=== PATIENT | female | born 1950 | race Caucasian/White ===

== ENCOUNTER → 2017-11-19 | Outpatient (CLI) | payer BC, MEDICARE | END | disposition home or self-care (01) | LOC: PCVCCLINIC 11:48 | DX: I10 Essential (primary) hypertension (principal); R09.89 Other specified symptoms and signs involving the circulatory and respiratory systems; E03.9 Hypothyroidism, unspecified; E78.00 Pure hypercholesterolemia, unspecified; R94.31 Abnormal electrocardiogram [ECG] [EKG]; Z82.49 Family history of ischemic heart disease and other diseases of the circulatory system | CPT/HCPCS: 80061; 93005; G0463 ==

== ENCOUNTER → 2018-03-01 | Outpatient (CLI) | payer BC, MEDICARE ==
--- NOTE | 2018-03-01 12:58 | PCVCIMAG ---
APPROVED REPORT Study performed: 03/01/2018 11:18:19 Exam: Comprehensive 2D, Doppler, and color-flow Echocardiogram Indication: Hyperlipidemia Patient Location: Echo lab Status: routine Ht: 5 ft 2 in HR: 84 bpm BP: 130/100 mmHg Rhythm: NSR Medical History Medical History: HTN, Hyperlipidemia Cardiac Risk Factors: HTN, Hyperlipidemia Procedure The patient underwent an Exercise Stress Test using the Zi Protocol. Blood pressure, heart rate, and EKG were monitored. An Echocardiogram was performed by it field technician in four stages in quad fashion. At peak stress, four selected images were obtained and placed side by side with resting images for comparison. Stress Test Details Stress Test: Exercise stress testing was performed using a Zi protocol. HR Resting HR: 84 bpmMax Heart Rate (APMHR): 153 bpm Max HR Achieved: 157 bpmTarget HR (85% APMHR): 130 bpm % of APMHR: 102 HR response to stress: Normal HR response to stress BP Resting BP: 130/100 mmHg Max BP: 168/90 mmHg ECG Resting ECG: Sinus Rhythm Stress ECG: Sinus Rhythm Recovery ECG: Sinus Rhythm Clinical Reason for Termination: Maximal effort Exercise duration: 6 min 13 sec Highest Stage Achieved: Stage 3: 3.4 mph at 14% grade. Exercise capacity: 7.60 METs Overall Exercise Capacity for Age: Poor Pre-Stress Echo The resting Echocardiogram showed normal left ventricular contractility with an estimated Ejection Fraction of about 55-60%. Normal wall motion in all segments on baseline images. Post-Stress Echo The stress Echocardiogram showed normal left ventricular contractility with an estimated Ejection Fraction of about 60-65%. Normal augmentation of wall motion in all segments on post stress images. Clinical No clinical or ECG evidence for ischemia. Conclusion Clinical Response: Non-ischemic Exercise Capacity: Below Average Stress ECG Response: Non-ischemic Stress Echo Images: Non-ischemic The left ventricle is normal in size and wall thickness in both the rest and stress images. Other Information Study Quality: Adequate <Conclusion> The left ventricle is normal in size and wall thickness in both the rest and stress images.
== END | disposition home or self-care (01) ==
LOC: PCVCIMAG 11:41
PROVIDERS: ATTEND Internal Medicine Cardiovascular Disease
DX: I10 Essential (primary) hypertension (principal); Z82.49 Family history of ischemic heart disease and other diseases of the circulatory system
CPT/HCPCS: 93306; 93325; 93351

== ENCOUNTER → 2018-03-02 | Outpatient (CLI) | payer MEDICARE, BC ==
--- NOTE | 2018-03-02 11:18 | PCVCIMAG ---
EXAM: BILATERAL RENAL ULTRASOUND AND BILATERAL RENAL DUPLEX INDICATION: Hypertension FINDINGS: Right kidney: Length measures 8.6 cm. No hydronephrosis or extensive renal scarring. Right renal duplex: Adequate technical quality. No sonographic evidence of renal artery stenosis. The aortic to renal artery ratio is 1.2. The renal vein is patent. Left kidney: Length measures 7.9 cm. No hydronephrosis or extensive renal scarring. Left renal duplex: Adequate technical quality. No sonographic evidence of renal artery stenosis. The aortic to renal artery ratio is 1.1. The renal vein is patent. Bladder: No obvious abnormalities. IMPRESSION: No significant renal artery stenosis. No hydronephrosis bilaterally. LOC:[id number]
== END | disposition home or self-care (01) ==
LOC: PCVCIMAG 09:34
PROVIDERS: ATTEND Internal Medicine Cardiovascular Disease
DX: I10 Essential (primary) hypertension (principal)
CPT/HCPCS: 76770; 93975

== ENCOUNTER → 2018-07-22 | Outpatient (CLI) | payer BC, MEDICARE ==
--- NOTE | 2018-07-22 17:20 | PCVCIMAG ---
APPROVED REPORT Study performed: 07/22/2018 09:33:38 Exam: Stress Echocardiogram Indication: Hypertension, Hyperlipidemia Patient Location: Echo lab Stress Nurse: Mariza Thompson RN Room #: 1 Status: routine Ht: 5 ft 2 in HR: 94 bpm BP: 160/90 mmHg Rhythm: NSR Medical History Medical History: HTN, Hyperlipidemia, Family Hx CAD Cardiac Risk Factors: HTN, Hyperlipidemia, FHX of CAD Pretest Chest Pain Characteristics: No chest pain Exercise History: Sedentary Procedure The patient underwent an Exercise Stress Test using the Marcell Protocol. Blood pressure, heart rate, and EKG were monitored. An Echocardiogram was performed by surgery technician in four stages in quad fashion. At peak stress, four selected images were obtained and placed side by side with resting images for comparison. Stress Test Details Stress Test: Exercise stress testing was performed using a Marcell protocol. HR Resting HR: 94 bpmMax Heart Rate (APMHR): 153 bpm Max HR Achieved: 169 bpmTarget HR (85% APMHR): 130 bpm % of APMHR: 110 Recovery HR: 103 bpm HR response to stress: Normal HR response to stress BP Resting BP: 160/90 mmHg Max BP: 162/90 mmHg Recovery BP: 140/80 mmHg BP response to stress: Normal blood pressure response to stress. ECG Resting ECG: Sinus Rhythm Stress ECG: Sinus Rhythm ST Change: Non-ischemic Arrhythmia: PACs Recovery ECG: Sinus Rhythm Recovery ST Change: Non-ischemic Recovery Arrhythmia: APC Clinical Reason for Termination: Maximal effort Exercise duration: 6 min 00 sec Highest Stage Achieved: Stage 2: 2.5 mph at 12% grade. Exercise capacity: 7.0 METs Overall Exercise Capacity for Age: Poor Scale: Sedentary Angina Score: None No complications. Stress ECG Conclusion The patient exercised according to the MARCELL protocol for 6:00 mins; achieving a work level of 7.0 METS. The resting heart rate of 94 bpm cisco to a maximum heart rate of 169 bpm. This value represent 110% of the maximal, age-predicted heart rate. The resting blood pressure of 160/90 mmHg, cisco to a maximum blood pressure of162/90 mmHg. The exercise test was stopped due to fatigue. Pre-Stress Echo The resting Echocardiogram showed normal left ventricular contractility with an estimated Ejection Fraction of about 55-60%. Normal wall motion in all segments on baseline images. Post-Stress Echo The stress Echocardiogram showed normal left ventricular contractility with an estimated Ejection Fraction of about 65-70%. Normal augmentation of wall motion in all segments on post stress images. Clinical No clinical or ECG evidence for ischemia. Conclusion Clinical Response: Non-ischemic Exercise Capacity: Below Average Stress ECG Response: Non-ischemic Stress Echo Images: Non-ischemic No clinical, EKG or echocardiographic evidence for ischemia. No echocardiographic evidence for exercise induced ischemia. Normal stress echocardiogram with maximal exercise stress. <Conclusion> No clinical, EKG or echocardiographic evidence for ischemia. No echocardiographic evidence for exercise induced ischemia. Normal stress echocardiogram with maximal exercise stress.
== END | disposition home or self-care (01) ==
LOC: PCVCIMAG 10:49
PROVIDERS: ATTEND Internal Medicine Cardiovascular Disease
DX: I10 Essential (primary) hypertension (principal); E78.5 Hyperlipidemia, unspecified
CPT/HCPCS: 93325; 93351

== ENCOUNTER → 2018-11-22 | Outpatient (CLI) | payer BC, MEDICARE ==
--- NOTE | 2018-11-22 17:33 | PCVCIMAG ---
APPROVED REPORT Study performed: 11/22/2018 10:53:28 EXAM: Comprehensive 2D, Doppler, and color-flow Echocardiogram Patient Location: Echo lab Status: routine BSA: 1.62 HR: 70 bpmBP: 124/80 mmHg Rhythm: NSR Other Information Study Quality: Good Risk Factors: Cardiac Risk Factors: HTN, Hyperlipidemia Indications Edema 2D Dimensions IVSd: 7.43 (7-11mm)LVOT Diam: 13.61 (18-24mm) LVDd: 36.05 mm PWd: 7.02 (7-11mm)Ascending Ao: 24.87 (22-36mm) LVDs: 27.48 (25-40mm) Left Atrium: 26.52 (27-40mm) Aortic Root: 22.77 mm LV Single Plane 4CH: 62.46 % LV Single Plane 2CH: 67.88 % Biplane EF: 65.9 % Volumes Left Atrial Volume (Systole) Single Plane 4CH: 25.85 mLSingle Plane 2CH: 23.18 mL LA ESV Index: 15.00 mL/m2 Aortic Valve AoV Peak Dustin.: 1.20 m/s AO Peak Gr.: 5.74 mmHgLVOT Max P.02 mmHg LVOT Max V: 1.12 m/s ARUN Vmax: 1.36 cm2 Mitral Valve E/A Ratio: 1.1 MV Decel. Time: 179.91 ms MV E Max Dustin.: 0.77 m/s MV A Dustin.: 0.72 m/s TDI E/Lateral E': 11.00E/Medial E': 12.83 Medial E' Dustin.: 0.06 m/s Lateral E' Dustin.: 0.07 m/s Pulmonary Valve PV Peak Gr.: 2.44 mmHg Pulmonary Vein P Vein S: 0.60 m/sP Vein A: 0.30 m/s P Vein D: 0.45 m/sP Vein A Dur.: 128.0 msec P Vein S/D Ratio: 1.33 Tricuspid Valve TR Peak Dustin.: 2.19 m/s TR Peak Gr.: 19.13 mmHg Left Ventricle The left ventricle is normal size. There is normal LV segmental wall motion. There is normal left ventricular wall thickness. Left ventricular systolic function is normal. The left ventricular ejection fraction is within the normal range. LVEF is 65%. The left ventricular diastolic function is normal. Right Ventricle The right ventricle is normal size. The right ventricular systolic function is normal. Atria The left atrium size is normal. The right atrium size is normal. Aortic Valve The aortic valve is normal in structure. No aortic regurgitation is present. There is no aortic valvular stenosis. Mitral Valve The mitral valve is normal in structure. Trace mitral regurgitation. No evidence of mitral valve stenosis. Tricuspid Valve The tricuspid valve is normal in structure. Trace tricuspid regurgitation. Pulmonary artery pressure is 27mmhg. Pulmonic Valve The pulmonary valve is normal in structure. There is no pulmonic valvular regurgitation. Great Vessels The aortic root is normal in size. IVC is normal in size and collapses >50% with inspiration. Pericardium There is no pericardial effusion. <Conclusion> The left ventricle is normal size. LVEF is 65%. The left ventricular diastolic function is normal. The right ventricle is normal size. The left atrium size is normal. The aortic valve is normal in structure. Trace mitral regurgitation. Trace mitral regurgitation. Trace tricuspid regurgitation. Pulmonary artery pressure is 27mmhg. The aortic root is normal in size. There is no pericardial effusion.
== END | disposition home or self-care (01) ==
LOC: PCVCIMAG 10:54
PROVIDERS: ATTEND Internal Medicine Cardiovascular Disease
DX: R07.89 Other chest pain (principal); E78.00 Pure hypercholesterolemia, unspecified; I10 Essential (primary) hypertension; Z82.49 Family history of ischemic heart disease and other diseases of the circulatory system; Z88.0 Allergy status to penicillin; Z88.2 Allergy status to sulfonamides; Z91.041 Radiographic dye allergy status
CPT/HCPCS: 93306